=== PATIENT | female | born 1975 | race Caucasian/White ===

== ENCOUNTER 2016-12-15 10:38 | Emergency (ER) | payer OTHER ==
--- NOTE | 2016-12-15 10:53 | CPEKG ---
Heart Rate: 73 RR Interval: 822 P-R Interval: 141 QRSD Interval: 102 QT Interval: 412 QTC Interval: 454 P [place]: 0 QRS [place]: 44 T Wave [place]: 34 EKG Severity - NORMAL ECG - EKG Impression: SINUS RHYTHM Electronically Signed By: Rosalie Nevarez 15-Dec-2016 15:37:30
[2016-12-15] MEDS ORDERED: NS 500 ML IV ONE (11:02)
[2016-12-15] MEDS ORDERED: ASPIRIN 81 MG CHEWABLE TAB PO ONE (11:02)
--- NOTE | 2016-12-15 11:02 | EDPHY ---
H & P Time Seen by Provider: 12/15/16 10:44 HPI/ROS: CHIEF COMPLAINT: Chest pain, palpitations HISTORY OF PRESENT ILLNESS: Patient is a 41-year-old female who presents emergency department with multiple complaints. The patient states that over the past 4 days she has had intermittent intermittent substernal chest pain radiating to her back. Also radiates to her left "tricep." It occurs for about 30 minutes at a time. It is not positional. It is not exertional. She states that she does "boot camp" high intensity workout and has no chest discomfort or palpitations with her exercise. Her last episode of chest pain was yesterday at 3:00 p.m.. Patient also complains of multiple "raúl horses" in her calf bilaterally. She has had no new calf swelling. No recent travel. REVIEW OF SYSTEMS: My complete review of systems is negative except as mentioned in the HPI. Past Medical/Surgical History: Anxiety, atrial septal defect(small) Social History: Patient does not smoke. She denies drugs or alcohol. Smoking Status: Former smoker Physical Exam: Vitals noted GENERAL: Well-appearing, in no acute distress, alert. Obese HEENT: Eyes normal to inspection, normal pharynx, no signs of dehydration. NECK: No thyromegaly, no lymphadenopathy, supple. RESPIRATORY: Clear to auscultation bilaterally, no rales, rhonchi or wheezing. CVS: Regular rate and rhythm, no rubs, murmurs, or gallops. ABDOMEN: Soft, nontender, nondistended, no organomegaly. BACK: Normal to inspection, no CVA tenderness. SKIN: Normal color, no rash, warm, dry. No pallor. EXTREMITIES: No pedal edema, no calf tenderness, no Homans sign or cords, no joint swelling. NEURO/PSYCH: Alert and oriented x3, normal mood and affect, normal motor sensory exam. Constitutional: Initial Vital Signs Temperature (C) 36.9 C 12/15/16 10:39 Heart Rate 63 12/15/16 10:39 Respiratory Rate 18 12/15/16 10:39 Blood Pressure 146/97 H 12/15/16 10:39 O2 Sat (%) 96 12/15/16 10:39 O2 Delivery Mode Room Air Allergies/Adverse Reactions: No Known Allergies Allergy (Unverified 12/15/16 10:39) Home Medications: Medication Instructions Recorded NK [No Known Home Meds] 12/15/16 Medical Decision Making ED Course/Re-evaluation: In the emergency department I discussed possible etiologies with the patient. IV was placed. She had laboratory studies, EKG and chest x-ray ordered. She was given aspirin 324 mg orally. EKG shows normal sinus rhythm, normal rate, normal axis, normal intervals. There are no ST or T-wave abnormalities. EKG is normal as interpreted by me. I reviewed the patient's laboratory studies. Troponin was negative. D-dimer was negative. I discussed the results with the patient. I answered all her questions. I paged Cardiology. I discussed case with Cardiology. They feel it is appropriate for outpatient stress testing. They will contact the patient to arrange this. I discussed this with the patient and answered all her questions. 1425: The patient was prepared for discharge she felt mild back discomfort. Because of this repeat EKG was ordered. She was given a GI cocktail. EKG shows normal sinus rhythm, normal rate, normal axis, normal intervals. There are no ST or T-wave abnormalities. EKG is normal as interpreted by me. Differential Diagnosis: My differential includes but is not limited to ACS, acute VA, dissection, aneurysm, pneumothorax, hemothorax, pulmonary embolus, reflux electrolyte abnormality, sugar abnormality - Data Points Laboratory Results: Laboratory Results 12/15/16 10:55 12/15/16 10:55 12/15/16 12/15/16 12/15/16 10:55 10:55 10:55 WBC RBC Hgb Hct MCV MCH MCHC RDW Plt Count MPV Neut % (Auto) Lymph % (Auto) [place] % (Auto) Eos % (Auto) Baso % (Auto) Nucleat RBC Rel Count Absolute Neuts (auto) Absolute Lymphs (auto) Absolute Monos (auto) Absolute Eos (auto) Absolute Basos (auto) Absolute Nucleated RBC Immature Gran % Immature Gran # D-Dimer 0.28 ug/mLFEU ug/mLFEU (0.00-0.50) Sodium 141 mEq/L mEq/L (134-144) Potassium 4.4 mEq/L mEq/L (3.5-5.2) Chloride 105 mEq/L mEq/L (97-110) Carbon Dioxide 23 mEq/l mEq/l (22-31) Anion Gap 13 mEq/L mEq/L (8-16) BUN 10 mg/dL mg/dL (7-23) Creatinine 0.7 mg/dL mg/dL (0.6-1.0) Estimated GFR > 60 Glucose 92 mg/dL mg/dL (70-100) Calcium 9.6 mg/dL mg/dL (8.5-10.4) Total Bilirubin 1.2 mg/dL mg/dL (0.1-1.4) Conjugated Bilirubin 0.2 mg/dL mg/dL (0.0-0.5) Unconjugated Bilirubin 1.0 mg/dL mg/dL (0.0-1.1) AST 52 IU/L H IU/L (14-46) ALT 56 IU/L H IU/L (9-52) Alkaline Phosphatase 60 IU/L IU/L (38-126) Troponin I < 0.012 ng/mL ng/mL (0-0.034) Total Protein 7.6 g/dL g/dL (6.3-8.2) Albumin 4.6 g/dL g/dL (3.5-5.0) Lipase 184.0 IU/L IU/L (23-300) Beta HCG, Qual NEGATIVE 12/15/16 10:55 WBC 6.61 10^3/uL 10^3/uL (3.80-9.50) RBC 4.94 10^6/uL 10^6/uL (4.18-5.33) Hgb 14.8 g/dL g/dL (12.6-16.3) Hct 42.7 % % (38.0-47.0) MCV 86.4 fL fL (81.5-99.8) MCH 30.0 pg pg (27.9-34.1) MCHC 34.7 g/dL g/dL (32.4-36.7) RDW 12.0 % % (11.5-15.2) Plt Count 246 10^3/uL 10^3/uL (150-400) MPV 9.9 fL fL (8.7-11.7) Neut % (Auto) 60.5 % % (39.3-74.2) Lymph % (Auto) 28.3 % % (15.0-45.0) [place] % (Auto) 8.6 % % (4.5-13.0) Eos % (Auto) 1.8 % % (0.6-7.6) Baso % (Auto) 0.6 % % (0.3-1.7) Nucleat RBC Rel Count 0.0 % % (0.0-0.2) Absolute Neuts (auto) 4.00 10^3/uL 10^3/uL (1.70-6.50) Absolute Lymphs (auto) 1.87 10^3/uL 10^3/uL (1.00-3.00) Absolute Monos (auto) 0.57 10^3/uL 10^3/uL (0.30-0.80) Absolute Eos (auto) 0.12 10^3/uL 10^3/uL (0.03-0.40) Absolute Basos (auto) 0.04 10^3/uL 10^3/uL (0.02-0.10) Absolute Nucleated RBC 0.00 10^3/uL 10^3/uL (0-0.01) Immature Gran % 0.2 % % (0.0-1.1) Immature Gran # 0.01 10^3/uL 10^3/uL (0.00-0.10) D-Dimer Sodium Potassium Chloride Carbon Dioxide Anion Gap BUN Creatinine Estimated GFR Glucose Calcium Total Bilirubin Conjugated Bilirubin Unconjugated Bilirubin AST ALT Alkaline Phosphatase Troponin I Total Protein Albumin Lipase Beta HCG, Qual Medications Given: Discontinued Medications Aspirin (Aspirin) 324 mg PO EDNOW ONE Stop: 12/15/16 11:03 Last Admin: 12/15/16 11:14 Dose: 324 mg Sodium Chloride (Ns) 500 mls @ 1,000 mls/hr IV ONCE ONE PRN Reason: Protocol Stop: 12/15/16 11:31 Last Admin: 12/15/16 11:14 Dose: 500 mls Departure - Departure Disposition: Home, Routine, Self-Care Clinical Impression: Chest pain Qualifiers: Chest pain type: other chest pain Qualified Code(s): R07.89 - Other chest pain Condition: Good Instructions: Chest Pain (ED) Additional Instructions: Return with increasing chest pain, shortness of breath or weakness. You need further testing by Cardiology. Your initial lab tests and EKG were normal in the emergency department. This is the 1st step in your evaluation. You been given contact information for Cardiology. Referrals: Elaine Mott MD [Primary Care Provider] - As per Instructions [facility] [Provider Group] - 1-2 days without fail
[2016-12-15 11:09] LABS: % IMMATURE GRANULYOCYTES 0.2 % (0.0-1.1); ABSOLUTE IMMATURE GRANULOCYTES 0.01 10^3/uL (0.00-0.10); ADD DIFF? NO; ADD MORPH? NO; ADD SCAN? NO; ATYPICAL LYMPHOCYTE FLAG 0 (0-99); FRAGMENT RBC FLAG 0 (0-99); HEMATOCRIT 42.7 % (38.0-47.0); HEMOGLOBIN 14.8 g/dL (12.6-16.3); LEFT SHIFT FLG 0 (0-99); LIPEMIA HEMOLYSIS FLAG 90 (0-99); MEAN CELL HEMOGLOBIN CONCENTR. 34.7 g/dL (32.4-36.7); MEAN CELL VOLUME 86.4 fL (81.5-99.8); MEAN PLATELET VOLUME 9.9 fL (8.7-11.7); PLATELET CLUMPS FLAG 0 (0-99); PLATELET COUNT 246 10^3/uL (150-400); RED BLOOD CELL COUNT 4.94 10^6/uL (4.18-5.33)
[2016-12-15 11:21] LABS: ALANINE AMINOTRANSFERASE 56 IU/L (9-52); ALBUMIN 4.6 g/dL (3.5-5.0); ALKALINE PHOSPHATASE 60 IU/L (38-126); ANION GAP 13 mEq/L (8-16); ASPARTATE AMINOTRANSFERASE 52 IU/L (14-46); BILIRUBIN,TOTAL 1.2 mg/dL (0.1-1.4); BILIRUBIN-CONJUGATED 0.2 mg/dL (0.0-0.5); CALCIUM 9.6 mg/dL (8.5-10.4); CARBON DIOXIDE 23 mEq/l (22-31); CHLORIDE 105 mEq/L (97-110); CREATININE 0.7 mg/dL (0.6-1.0); GLOMERULAR FILTRATION RATE > 60; GLUCOSE 92 mg/dL (70-100); POTASSIUM 4.4 mEq/L (3.5-5.2); SODIUM 141 mEq/L (134-144); TOTAL PROTEIN 7.6 g/dL (6.3-8.2)
[2016-12-15 11:31] LABS: TROPONIN I < 0.012 ng/mL (0-0.034)
[2016-12-15 11:55] VITALS: RESP 16; O2SAT 95
[2016-12-15 14:23] VITALS: BP 111/79; PULSE 85; TEMP 98.2
[2016-12-15] MEDS ORDERED: MAG HYDROX/AL HYDROX/SIMETH 30 ML UDCUP PO ONE (14:38)
[2016-12-15] MEDS ORDERED: HYOSCYAMINE SULFATE 0.125 MG TAB PO ONE (14:39)
[2016-12-15] MEDS ORDERED: LIDOCAINE 2% VISCOUS 15 ML UDCUP PO ONE (14:39)
--- NOTE | 2016-12-15 14:45 | CPEKG ---
Heart Rate: 61 RR Interval: 984 QRSD Interval: 92 QT Interval: 428 QTC Interval: 431 QRS [place]: 50 T Wave [place]: 27 EKG Severity - ABNORMAL ECG - EKG Impression: ATRIAL FIBRILLATION Electronically Signed By: Rosalie Nevarez 15-Dec-2016 15:37:30
== END 2016-12-15 15:13 | disposition home or self-care (01) ==
DX: R07.89 Other chest pain (principal); Z87.891 Personal history of nicotine dependence

== ENCOUNTER 2017-06-27 16:07 | Emergency (ER) | payer OTHER ==
[2017-06-27 16:12] VITALS: TEMP 98.2
--- NOTE | 2017-06-27 16:13 | EDPHY ---
H & P Stated Complaint: CP, SHOULDER,NECK AND JAW PAIN Time Seen by Provider: 06/27/17 16:13 - Personal History LMP (Females 10-55): 15-21 Days Ago Current Tetanus Diphtheria and Acellular Pertussis (TDAP): Unsure - Medical/Surgical History Hx Asthma: No Hx Chronic Respiratory Disease: No Hx Diabetes: No Hx Cardiac Disease: Yes Hx Renal Disease: No Hx Cirrhosis: No Hx Alcoholism: No Hx HIV/AIDS: No Hx Splenectomy or Spleen Trauma: No Other PMH: atrial septal defect, THYROID SURGERY - Social History Smoking Status: Former smoker Constitutional: Initial Vital Signs Temperature (C) 36.8 C 06/27/17 16:10 Heart Rate 81 06/27/17 16:10 Respiratory Rate 18 06/27/17 16:10 Blood Pressure 153/108 H 06/27/17 16:10 O2 Sat (%) 97 06/27/17 16:10 O2 Delivery Mode Room Air Allergies/Adverse Reactions: No Known Allergies Allergy (Unverified 12/15/16 10:39) Home Medications: Medication Instructions Recorded NK [No Known Home Meds] 12/15/16 Medical Decision Making - Diagnostics Imaging Results: Imaging Impressions Chest X-Ray 06/27/17 16:43 Impression: Clear lungs. No acute process. Imaging: I viewed and interpreted images myself ED Course/Re-evaluation: CHIEF COMPLAINT: Chest pain, fatigue HISTORY OF PRESENT ILLNESS: The patient is a 41 y/o female arriving with her complaining of acute onset squeezing and radiating chest pain that began approximately 1 hour ago. She says "I haven't felt right the last couple days" and has felt generally fatigued. She notes she gets occasional palpitations, but yesterday she had palpitations that "were more intense than normal." While sitting at her desk working 1 hour ago, she developed sudden "squeezing" pain between her shoulder blades. This progressed to left-sided chest pain underneath her collar bone and is now radiating to her left shoulder , left arm, and jaw. She has associated cold sweats and mild dyspnea. She denies fever, sore throat, cough, vomiting, diarrhea, abdominal pain. She denies prior cardiac disease or respiratory disease history. No diabetes. She is a smoker and obese. No known family history of cardiac disease in 1st degree relatives. REVIEW OF SYSTEMS: A 10 point review of systems was performed and is negative with the exception of the elements mentioned in the history of present illness. PHYSICAL EXAM: HR, BP, O2 Sat, RR. Temp noted General Appearance: Alert, well hydrated, appropriate, and non-toxic appearing. Obese. Head: Atraumatic without scalp tenderness or obvious injury Eyes: Pupils equal, round, reactive to light and accommodation, EOMI, no trauma , no injection. Ears: Clear bilaterally, no perforation, normal landmarks Nose: Atraumatic, no rhinorrhea, clear. Throat: There is no erythema or exudates, no lesions, normal tonsils, mucus membranes moist. Neck: Supple, nontender, no lymphadenopathy. Respiratory: No retractions, no distress, no wheezes, and no accessory muscle use. Lungs are clear to auscultation bilaterally. Cardiovascular: Regular rate and rhythm, no murmurs, rubs, or gallops. Good capillary refill all extremities. Gastrointestinal: Abdomen is soft, nontender, non-distended, no masses, no rebound, no guarding, no peritoneal signs. Musculoskeletal: Normal active ROM of all extremities, atraumatic. Neurological: Alert, appropriate, and interactive. The patient has non-focal cranial nerves, motor, sensory, and cerebellar exam. Skin: No rashes, good turgor, no nodules on palpation. Past medical history: Denies Past surgical history: Denies Family history: Cancer in grandparents. No known cardiac disease history in 1st degree relatives. Social history: at bedside. Smoker. Employed. DIAGNOSTICS/PROCEDURES/CRITICAL CARE TIME: The 12 lead EKG was interpreted by myself. Sinus mechanism. See hard copy and/ or "tracemaster" electronic copy for interpretation. Chest x-ray: negative DIFFERENTIAL DIAGNOSIS: The differential diagnosis for the patient's chest pain included but was not limited to myocardial ischemia, pulmonary embolus, chest wall pain, pleural inflammation, and pulmonary infectious causes. MEDICAL DECISION MAKING: This is an obese, tobacco-using 41 y/o female with no diagnosed medical history who presents with a 1-week history of feeling fatigued and a 1-hour history of chest pain with radiation, diaphoresis, and dyspnea. Her exam is unremarkable. I am unable to reproduce her pain with palpation. Plan for cardiac work up including IV, labs, EKG, chest x-ray. Reassessed patient. Work up is unremarkable. I do not suspect obvious cardiac etiology at this time. Recommended follow up with PCP and cardiology. Return precautions discussed. She is comfortable with this plan. - Data Points Laboratory Results: Laboratory Results 06/27/17 16:29 06/27/17 06/27/17 06/27/17 16:29 16:29 16:29 WBC 7.94 10^3/uL 10^3/uL (3.80-9.50) RBC 4.82 10^6/uL 10^6/uL (4.18-5.33) Hgb 14.5 g/dL g/dL (12.6-16.3) Hct 42.2 % % (38.0-47.0) MCV 87.6 fL fL (81.5-99.8) MCH 30.1 pg pg (27.9-34.1) MCHC 34.4 g/dL g/dL (32.4-36.7) RDW 11.9 % % (11.5-15.2) Plt Count 230 10^3/uL 10^3/uL (150-400) MPV 9.9 fL fL (8.7-11.7) Neut % (Auto) 58.5 % % (39.3-74.2) Lymph % (Auto) 30.0 % % (15.0-45.0) [place] % (Auto) 8.2 % % (4.5-13.0) Eos % (Auto) 2.6 % % (0.6-7.6) Baso % (Auto) 0.4 % % (0.3-1.7) Nucleat RBC Rel Count 0.0 % % (0.0-0.2) Absolute Neuts (auto) 4.65 10^3/uL 10^3/uL (1.70-6.50) Absolute Lymphs (auto) 2.38 10^3/uL 10^3/uL (1.00-3.00) Absolute Monos (auto) 0.65 10^3/uL 10^3/uL (0.30-0.80) Absolute Eos (auto) 0.21 10^3/uL 10^3/uL (0.03-0.40) Absolute Basos (auto) 0.03 10^3/uL 10^3/uL (0.02-0.10) Absolute Nucleated RBC 0.00 10^3/uL 10^3/uL (0-0.01) Immature Gran % 0.3 % % (0.0-1.1) Immature Gran # 0.02 10^3/uL 10^3/uL (0.00-0.10) PT 13.9 SEC SEC (12.0-15.0) INR 1.05 (0.83-1.16) APTT 29.6 SEC SEC (23.0-38.0) D-Dimer 0.38 ug/mLFEU ug/mLFEU (0.00-0.50) Magnesium 1.8 mg/dL mg/dL (1.6-2.3) Troponin I < 0.012 ng/mL ng/mL (0.000-0.034) NT-Pro-B Natriuret Pep 16 pg/mL pg/mL (0-125) Departure - Departure Disposition: Home, Routine, Self-Care Clinical Impression: Chest pain Qualifiers: Chest pain type: other chest pain Qualified Code(s): R07.89 - Other chest pain ; R07.8 - Other chest pain Condition: Good Instructions: Chest Pain (ED), Noncardiac Chest Pain (ED) Additional Instructions: Please follow up with your primary care provider and physician assistant primary care in the next week. Return to the ED for worsening of condition. Referrals: Elaine Mott MD [Primary Care Provider] - As per Instructions Yung Lucas MD [Medical Doctor] - As per Instructions Report Scribed for: Lamont Travis Report Scribed by: Adri La Date of Report: 06/27/17 Time of Report: 16:50
--- NOTE | 2017-06-27 16:20 | CPEKG ---
Heart Rate: 65 RR Interval: 923 P-R Interval: 152 QRSD Interval: 86 QT Interval: 396 QTC Interval: 412 P [place]: 66 QRS [place]: 60 T Wave [place]: 35 EKG Severity - NORMAL ECG - EKG Impression: SINUS RHYTHM Electronically Signed By: Lamont Travis 27-Jun-2017 19:48:46
[2017-06-27 17:02] LABS: PLATELET COUNT 230 10^3/uL (150-400)
[2017-06-27 17:07] VITALS: RESP 16
[2017-06-27 17:08] LABS: INR 1.05 (0.83-1.16); PROTIME(PATIENT) 13.9 SEC (12.0-15.0)
[2017-06-27 18:05] VITALS: BP 129/62; PULSE 58; O2SAT 95
== END 2017-06-27 18:03 | disposition home or self-care (01) ==
DX: R07.89 Other chest pain (principal); Z87.891 Personal history of nicotine dependence